=== PATIENT | male | born 1995 | race Caucasian/White ===

== ENCOUNTER 2023-05-15 18:04 | Outpatient (REF) | payer MEDICAID, SELFPAY ==
[2023-05-15 21:40] LABS: BUN 11 mg/dL (7-18); CREATININE 0.9 mg/dL (0.70-1.30); Calcium 9.9 mg/dL (8.5-10.1); Calculated LDL 151 mg/dL (<100); Chloride 103 mmol/L (98-107); Cholesterol 233 mg/dL (<200); Estimated GFR 120.05 (mL/min/1.73m2); Glucose 100 mg/dL (74-106); HDL Cholesterol 49 mg/dL (40-60); Potassium 4.2 mmol/L (3.5-5.1); Sodium 140 mmol/L (136-145); Triglyceride 166 mg/dL (<150)
[2023-05-17 11:09] LABS: Syphilis Serology (RPR) Positive (Negative)
[2023-05-17 11:16] LABS: Hepatitis C Ab w Rflx HCV PCR Negative (Negative)
[2023-05-17 12:05] LABS: HIV-1/2 Ag & Ab Screen Negative (Negative)
[2023-05-17 12:32] LABS: Chlamydia Result Negative (Negative); GC Result Negative (Negative)
[2023-05-19 10:09] LABS: RPR w/Reflex Positive (Negative)
== END 2023-05-15 18:05 | disposition home or self-care (01) ==
LOC: NCHCN 18:04
PROVIDERS: Visit Provider Family Medicine
DX: A53.9 Syphilis, unspecified (principal); I10 Essential (primary) hypertension; F90.9 Attention-deficit hyperactivity disorder, unspecified type; Z11.59 Encounter for screening for other viral diseases; Z11.3 Encounter for screening for infections with a predominantly sexual mode of transmission; Z11.4 Encounter for screening for human immunodeficiency virus [HIV]
CPT/HCPCS: 0064U; 80048; 80061; 86593; 86803; 87389; 87491; 87591; 86592

== ENCOUNTER 2025-05-02 16:31 | Outpatient (REF) | payer MEDICAID, SELFPAY ==
[2025-05-02 21:06] LABS: HCT 40.9 % (40.0-50.0); HGB 13.8 g/dL (13.5-17.5); MCH 28.2 pg (27.0-33.0); MCHC 33.7 % (32.0-36.0); MCV 84 fL (80-95); MPV 11.6 fL (8.0-11.0); Platelet Count 379 10^3/uL (130-400); RBC 4.90 10^6/uL (4.36-5.78); RDW 11.7 % (11.8-14.1); RDW-SD 35.3 fL; WBC 8.69 10^3/uL (4.4-10.8)
[2025-05-02 21:34] LABS: ALT 35 U/L (16-63); AST 21 U/L (15-37); Albumin 3.8 g/dL (3.4-5.0); Alkaline Phosphatase 78 U/L (46-116); Anion Gap 7.2 mmol/L (3-11); BUN 15 mg/dL (7-18); Bilirubin, Total 0.2 mg/dL (0.2-1.0); CO2 33.8 mmol/L (21.0-32.0); Calcium 9.5 mg/dL (8.5-10.1); Chloride 95 mmol/L (98-107); Estimated GFR 118.57 (mL/min/1.73m2); Glucose 94 mg/dL (74-106); Magnesium 1.6 mg/dL (1.8-2.4); Potassium 3.7 mmol/L (3.5-5.1); Sodium 136 mmol/L (136-145); TSH (W/Ref FT4) 0.92 uIU/mL (0.36-3.74); Total Protein 7.2 g/dL (6.4-8.2)
== END 2025-05-02 16:32 | disposition home or self-care (01) ==
LOC: NCHCN 16:31
PROVIDERS: Visit Provider Nurse Practitioner Family
DX: Z87.898 Personal history of other specified conditions (principal)
CPT/HCPCS: 80053; 85027; 83735; 84443

== ENCOUNTER 2025-05-12 16:11 | Outpatient (REF) | payer MEDICAID, SELFPAY ==
[2025-05-12 17:31] LABS: Anion Gap 9.1 mmol/L (3-11); BUN 14 mg/dL (7-18); CO2 30.9 mmol/L (21.0-32.0); Calcium 9.9 mg/dL (8.5-10.1); Chloride 96 mmol/L (98-107); Estimated GFR 122.86 (mL/min/1.73m2); Glucose 90 mg/dL (74-106); Magnesium 2.0 mg/dL (1.8-2.4); Potassium 4.2 mmol/L (3.5-5.1); Sodium 136 mmol/L (136-145)
== END 2025-05-12 16:12 | disposition home or self-care (01) ==
LOC: NCHCN 16:11
PROVIDERS: Visit Provider Family Medicine
DX: E83.42 Hypomagnesemia (principal)
CPT/HCPCS: 80048; 83735